=== PATIENT | male | born 1975 | race Caucasian/White ===

== ENCOUNTER 2020-08-08 21:54 | Emergency (ER) | payer SELFPAY ==
[2020-08-08 22:01] VITALS: BP 119/100; PULSE 113; RESP 18; TEMP 36.8; O2SAT 97; BMI 26.6
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
[2020-08-08 22:10] VITALS: PULSE 107; RESP 18; TEMP 36.8; O2SAT 100
[2020-08-08] MEDS: iohexol 300 mg/mL 100 mL Btl IV (22:32)
[2020-08-08 22:57] LABS: Basophils % 0.2 %; Eosinophils # 0.1 10^3/uL (0.0-0.8); Eosinophils % 0.5 %; Hematocrit 44.5 % (42.0-52.0); Hemoglobin 14.7 g/dL (11.7-16.6); Lymphocytes # 2.1 10^3/uL (0.8-4.8); Lymphocytes % 14.8 %; Mean Corpuscular Hemoglobin 30.5 pg (28.0-34.0); Mean Corpuscular Volume 92.3 fL (80-94); Mean Platelet Volume 10.7 fL (7.4-10.4); Monocytes # 0.9 10^3/uL (0.2-0.9); Monocytes % 6.8 %; Neutrophils # 10.74 10^3/uL (1.8-7.7); Neutrophils % 77.3 %; Nucleated Red Blood Cells % 0 %; Platelet Count 334 10^3/cmm (130-400); Red Blood Count 4.82 10^6/uL (4.1-5.3); Red Cell Distribution Width 11.4 % (12.1-15.1); White Blood Count 13.9 10^3/uL (4.0-10.0)
[2020-08-08 23:13] LABS: Alanine Aminotransferase 43 U/L (0-41); Albumin Level 4.5 g/dL (3.5-5.2); Alkaline Phosphatase 85 IU/L (40-130); Anion Gap 15.8 (5-19); Aspartate Amino Transferase 27 U/L (0-40); Blood Urea Nitrogen 11 mg/dL (6-20); Calcium 8.3 mg/dL (8.5-10.5); Carbon Dioxide 24 mmol/L (22-29); Chloride 100 mmol/L (98-107); Globulin 2.5 g/dL (1.3-4.6); Glomerular Filtration Rate 123.1 mL/min (90-130); Glucose 107 mg/dL (65-115); Osmolality Calculated 282 mOsm/kg (285-295); Potassium 3.8 mmol/L (3.5-5.1); Sodium 136 mmol/L (136-145); Total Bilirubin 0.3 mg/dL (0.15-1.2)
[2020-08-08 23:40] VITALS: BP 117/76; PULSE 102; RESP 20; TEMP 36.8; O2SAT 96
[2020-08-08 23:53] VITALS: RESP 20; O2SAT 96
[2020-08-08] MEDS: HYDROmorphone 1 mg/mL INJ 1 mL IVP (23:53)
[2020-08-08 23:59] LABS: Alcohol Level 178 mg/dL (0-10)
[2020-08-09] VITALS: BP 117/76; PULSE 102; RESP 20; TEMP 36.8; O2SAT 96
[2020-08-09 00:28] VITALS: BP 96/54; PULSE 98; RESP 17; TEMP 36.8; O2SAT 95
--- NOTE | 2020-08-09 00:44 | PC.NURSE ---
Called report to Leana Oliveira RN at [facility].
[2020-08-09 01:25] VITALS: BP 96/54; PULSE 98; RESP 17; TEMP 36.8; O2SAT 95
== END 2020-08-09 01:10 | disposition short-term general hospital (02) ==
PROVIDERS: Emergency Provider Emergency Medicine
DX: S30.1XXA Contusion of abdominal wall, initial encounter (principal); S32.048A Other fracture of fourth lumbar vertebra, initial encounter for closed fracture; S32.058A Other fracture of fifth lumbar vertebra, initial encounter for closed fracture; V89.2XXA Person injured in unspecified motor-vehicle accident, traffic, initial encounter; F17.210 Nicotine dependence, cigarettes, uncomplicated
CPT/HCPCS: 70450; 71260; 72125; 74177; 80053; 80307; 85025; 85610; 96374; 99285; J1170; Q9967